=== PATIENT | female | born 1995 | race Caucasian/White ===

== ENCOUNTER 2017-03-09 08:50 | Outpatient (CLI) | payer OTHER | END 2017-03-09 08:51 | disposition EMS.NT | LOC: EMS 08:50 | PROVIDERS: ATTEND Surgery | DX: T63.441A Toxic effect of venom of bees, accidental (unintentional), initial encounter (principal) ==

== ENCOUNTER 2022-05-11 08:00 | Outpatient (CLI) | payer MEDICAID, OTHER ==
[2022-05-11 18:40] LABS: BASOPHILS % (AUTO) 0.7 %; EOSINOPHILS # (AUTO) 0.1 10^3/uL (0.0-0.7); EOSINOPHILS % (AUTO) 2.3 %; HCT - HEMATOCRIT 42.5 % (37.0-47.0); HGB - HEMOGLOBIN 14.9 g/dL (12.0-16.0); LYMPHOCYTES # (AUTO) 1.7 10^3/uL (1.5-3.5); LYMPHOCYTES % (AUTO) 31.2 %; MEAN CORPUSCULAR HGB CONC 35.1 g/dL (32.0-36.0); MEAN CORPUSCULAR VOLUME 94.2 fL (81.0-99.0); MEAN PLATELET VOLUME 9.7 fL (7.9-10.8); MONOCYTES # (AUTO) 0.6 10^3/uL (0.0-1.0); MONOCYTES % (AUTO) 10.8 %; NEUTROPHILS # (AUTO) 3.1 10^3/uL (1.5-6.6); NEUTROPHILS % (AUTO) 54.8 %; PLT - PLATELET COUNT 299 10^3/uL (130-450); RED BLOOD COUNT 4.51 10^6/uL (4.20-5.40); RED CELL DISTRIBUTION WIDTH 11.9 % (12.0-15.0); WHITE BLOOD COUNT 5.6 x10^3/uL (4.8-10.8)
[2022-05-11 19:04] LABS: ALBUMIN/GLOBULIN RATIO 1.6 (1.0-2.2); BILIRUBIN,TOTAL 1.6 mg/dL (0.2-1.0); CALCIUM 9.7 mg/dL (8.5-10.3); CREATININE 0.7 mg/dL (0.4-1.0); POTASSIUM 4.2 mmol/L (3.5-5.0); TOTAL PROTEIN 8.2 g/dL (6.7-8.2)
== END 2022-05-11 23:59 | disposition home or self-care (01) ==
LOC: LAB.N 08:00
PROVIDERS: ATTEND Nurse Practitioner
DX: R10.9 Unspecified abdominal pain (principal)
CPT/HCPCS: 36415; 80053; 82150; 83690; 85025

== ENCOUNTER 2022-05-17 10:10 | Outpatient (CLI) | payer MEDICAID ==
--- NOTE | 2022-05-17 10:50 | XRAY Report ---
PROCEDURE: Chest 2 View X-Ray INDICATIONS: UNSPECIFIED ABD PAIN TECHNIQUE: 2 view(s) of the chest. COMPARISON: None. FINDINGS: Surgical changes and devices: None. Lungs and pleura: No pleural effusions or pneumothorax. Lungs are clear. Mediastinum: Mediastinal contours are normal. Heart size is normal. Bones and chest wall: No suspicious bony abnormalities. Soft tissues appear unremarkable. IMPRESSION: No evidence for active disease in the chest. Reviewed by: Carlos Clark MD on 05/17/2022 10:48 AM PDT Approved by: Carlos Clark MD on 05/17/2022 10:48 AM PDT Station ID: [id number]
== END 2022-05-17 10:11 | disposition home or self-care (01) ==
LOC: DI.N 10:10
PROVIDERS: ATTEND Nurse Practitioner
DX: R10.9 Unspecified abdominal pain (principal)

== ENCOUNTER 2023-07-03 12:19 | Emergency (ER) | payer MEDICAID ==
[2023-07-03 12:50] LABS: BASOPHILS % (AUTO) 0.3 %; EOSINOPHILS # (AUTO) 0.2 10^3/uL (0.0-0.7); EOSINOPHILS % (AUTO) 1.9 %; HCT - HEMATOCRIT 43.7 % (37.0-47.0); HGB - HEMOGLOBIN 15.4 g/dL (12.0-16.0); LYMPHOCYTES # (AUTO) 1.5 10^3/uL (1.5-3.5); LYMPHOCYTES % (AUTO) 12.4 %; MEAN CORPUSCULAR HEMOGLOBIN 32.5 pg (27.0-31.0); MEAN CORPUSCULAR HGB CONC 35.2 g/dL (32.0-36.0); MEAN CORPUSCULAR VOLUME 92.2 fL (81.0-99.0); MEAN PLATELET VOLUME 9.2 fL (7.9-10.8); NEUTROPHILS # (AUTO) 9.6 10^3/uL (1.5-6.6); NEUTROPHILS % (AUTO) 77.1 %; PLT - PLATELET COUNT 324 10^3/uL (130-450); RED BLOOD COUNT 4.74 10^6/uL (4.20-5.40); RED CELL DISTRIBUTION WIDTH 11.2 % (12.0-15.0); WHITE BLOOD COUNT 12.4 x10^3/uL (4.8-10.8)
[2023-07-03 13:27] LABS: ALBUMIN/GLOBULIN RATIO 1.8 (1.0-2.2); BILIRUBIN,TOTAL 0.8 mg/dL (0.2-1.0); CALCIUM 9.5 mg/dL (8.5-10.3); CREATININE 0.6 mg/dL (0.6-1.3); TOTAL PROTEIN 7.8 g/dL (6.4-8.9)
[2023-07-03 13:54] LABS: HCG,QUALITATIVE BLOOD NEGATIVE
[2023-07-03] MEDS ORDERED: DROPERIDOL 5 MG/2 ML VIAL IVP STA (14:03)
[2023-07-03] MEDS ORDERED: HYDROmorphone 1 MG/ML CARPUJECT IVP STA (14:03)
[2023-07-03] MEDS ORDERED: SODIUM CHLORIDE 0.9% 1,000 ML IV STA (14:03)
--- NOTE | 2023-07-03 14:04 | ED Physician Documentation ---
PD HPI NVD - Stated complaint Stated Complaint: N/V - Chief complaint Chief Complaint: Abd Pain - History obtained from History obtained from: Patient - History of Present Illness Timing - onset: Enter time (0900), Today Timing - duration: Hours Timing - details: Abrupt onset Associated symptoms: Abdominal pain. No: Fever Contributing factors: Bad food (possible with potato "juice" on the outside of the package) Improved by: Vomiting Worsened by: Breathing, Position, Palpation Similar symptoms before: Has not had sx before Recently seen: Not recently seen - Additonal information Additional information: 27-year-old Namrata Angel reports that last night she was fixing up and some potatoes and on the outside of the package there was some potato juice from rotting of the potatoes and she opened the package with her mouth. Review of Systems Constitutional: denies: Fever Eyes: denies: Decreased vision Ears: denies: Loss of hearing Nose: denies: Congestion Throat: denies: Sore throat Cardiac: denies: Chest pain / pressure, Palpitations Respiratory: denies: Dyspnea, Cough GI: reports: Abdominal Pain, Nausea, Vomiting, Diarrhea : denies: Dysuria, Frequency PD PAST MEDICAL HISTORY - Past Medical History Cardiovascular: None Respiratory: None Endocrine/Autoimmune: None GI: None CENTER MANAGER: None : None HEENT: None Psych: None Musculoskeletal: None Derm: None - Past Surgical History Past Surgical History: No - Present Medications Home Medications: Ambulatory Orders Medication Instructions Recorded Confirmed Ondansetron Odt [Zofran] 4 mg TL Q6H PRN #10 tablet 07/03/23 - Allergies Allergies/Adverse Reactions: Allergies Allergy/AdvReac Type Severity Reaction Status Date / Time antibiotic unknown name Allergy Unknown Uncoded 07/03/23 12:28 - Social History Does the pt smoke?: No Smoking Status: Never smoker Does the pt drink ETOH?: No Does the pt have substance abuse?: No - Immunizations Immunizations are current?: Yes - POLST Patient has POLST: No PD ED PE NORMAL - Vitals Vital signs reviewed: Yes (Hypertensive mild) - General General: Alert and oriented X 3, Well developed/nourished, Other ( it may not be the patient is curled in the position and appears to be in pain) - HEENT HEENT: Atraumatic, PERRL, EOMI - Cardiac Cardiac: RRR, No murmur - Respiratory Respiratory: No respiratory distress, Clear bilaterally - Abdomen Abdomen: Normal bowel sounds, Soft, Non distended, No organomegaly, Other (Generalized tenderness without specific point tenderness no guarding or rebound) - Back Back: No CVA TTP, No spinal TTP - Derm Derm: Normal color, Warm and dry, No rash - Extremities Extremities: No deformity, No edema - Neuro Neuro: Alert and oriented X 3, safety leader 2-12 intact, No motor deficit, No sensory deficit, Normal speech Eye Opening: Spontaneous Motor: Obeys Commands Verbal: Oriented GCS Score: 15 - Psych Psych: Normal mood, Normal affect Results - Vitals Vitals: Vital Signs - 24 hr 07/03/23 07/03/23 07/03/23 12:23 14:59 15:40 Temperature 36.7 C 35.9 C L Heart Rate 94 90 Respiratory 22 16 Rate Blood Pressure 127/83 H 110/67 160/83 H O2 Saturation 97 98 Oxygen O2 Source Room air - Labs Labs: Laboratory Tests 07/03/23 07/03/23 07/03/23 12:46 12:46 12:46 WBC 12.4 H RBC 4.74 Hgb 15.4 Hct 43.7 MCV 92.2 MCH 32.5 H MCHC 35.2 RDW 11.2 L Plt Count 324 MPV 9.2 Neut # (Auto) 9.6 H Lymph # (Auto) 1.5 [place] # (Auto) 1.0 Eos # (Auto) 0.2 Baso # (Auto) 0.0 Absolute Nucleated RBC 0.00 Nucleated RBC % 0.0 Sodium 138 Potassium 4.0 Chloride 108 Carbon Dioxide 23 Anion Gap 7.0 BUN 12 Creatinine 0.6 Estimated GFR (MDRD) 121 Glucose 99 Calcium 9.5 Total Bilirubin 0.8 AST 14 ALT 14 Alkaline Phosphatase 62 Total Protein 7.8 Albumin 5.0 Globulin 2.8 Albumin/Globulin Ratio 1.8 Lipase 39 Serum HCG, Qual NEGATIVE Urine Color Urine Clarity Urine pH Ur Specific Grace Urine Protein Urine Glucose (UA) Urine Ketones Urine Occult Blood Urine Nitrite Urine Bilirubin Urine Urobilinogen Ur Leukocyte Esterase Ur Microscopic Review Urine Culture Comments Urine HCG, Qual 07/03/23 07/03/23 15:19 15:19 WBC RBC Hgb Hct MCV MCH MCHC RDW Plt Count MPV Neut # (Auto) Lymph # (Auto) [place] # (Auto) Eos # (Auto) Baso # (Auto) Absolute Nucleated RBC Nucleated RBC % Sodium Potassium Chloride Carbon Dioxide Anion Gap BUN Creatinine Estimated GFR (MDRD) Glucose Calcium Total Bilirubin AST ALT Alkaline Phosphatase Total Protein Albumin Globulin Albumin/Globulin Ratio Lipase Serum HCG, Qual Urine Color YELLOW Urine Clarity CLEAR Urine pH 5.5 Ur Specific Grace 1.025 Urine Protein NEGATIVE Urine Glucose (UA) NEGATIVE Urine Ketones NEGATIVE Urine Occult Blood NEGATIVE Urine Nitrite NEGATIVE Urine Bilirubin NEGATIVE Urine Urobilinogen 0.2 (NORMAL) Ur Leukocyte Esterase NEGATIVE Ur Microscopic Review NOT INDICATED Urine Culture Comments NOT INDICATED Urine HCG, Qual NEGATIVE - Rads (name of study) CT ab pel with Relevant Findings:: Prelim report reviewed (Impression: No findings to explain the patient's abdominal pain, nausea or vomiting. No obstructive process identified. Normal appendix. Left-sided corpus luteum.), EMP independent interpretation of test PD Medical Decision Making - ED course Complexity details: reviewed old records, reviewed results, re-evaluated patient, considered differential, d/w patient Reviewed Lab Results: We reviewed a complete blood cell count showing AN elevated white blood cell count of 12.4 normal hemoglobin hematocrit and platelets normal indices the chemistry showed normal electrolytes normal kidney and liver function normal glucose and a serum hCG was negative the urinalysis negative as well. These laboratory test did not contribute to a specific diagnosis. They did trigger CT scan of the abdomen and pelvis with abdominal pain and an elevated white blood cell count. This CT scan was able to rule out appendicitis or other processes contributing to the patient's symptoms. ED course: 27-year-old female with acute nausea vomiting and abdominal pain in the context of contaminating her mouth with portions of rotten potato is treated in the emergency department with Inapsine, Dilaudid and saline. I did question the patient about her use of cannabis which she uses extensively since she was 13 years old and she indicates that she has not had episodes similar to this previously and that she did get into a hot shower today before coming to the emergency department and did not get relief there. In fact she vomited more in the shower.I still suspect this may be cannabis hyperemesis but there are multiple portions of the history that indicate Departure - Departure Disposition: 01 Home, Self Care Clinical Impression: Vomiting Qualifiers: Vomiting type: unspecified Nausea presence: with nausea Qualified Code(s): R11.2 - Nausea with vomiting, unspecified Abdominal pain Qualifiers: Abdominal location: generalized Qualified Code(s): R10.84 - Generalized abdominal pain Condition: Stable Instructions: ED Diet Vomiting Diarrhea, ED Nausea Vomiting Follow-Up: [facility] [place] [Provider Group] Prescriptions: Ondansetron Odt [Zofran] 4 mg TL Q6H PRN #10 tablet PRN Reason: Nausea / Vomiting Comments: Namrata, today it looks like your abdominal pain nausea vomiting and diarrhea may have been related to some food poisoning. Usually with food poisoning once the episode is over it only takes a bit of time to recover from the effects of the dehydration. I have E scribed some Zofran for you to use if needed to the [facility] in [place]. Our expectations are no further pain and reduced nausea and diarrhea.
[2023-07-03 15:05] VITALS: O2SAT 98
[2023-07-03 15:28] LABS: BILIRUBIN,URINE NEGATIVE (NEGATIVE); GLUCOSE, URINE (UA) NEGATIVE (NEGATIVE); KETONES,URINE (UA) NEGATIVE (NEGATIVE); LEUKOCYTE ESTERASE, URINE NEGATIVE (NEGATIVE); NITRITE,URINE NEGATIVE (NEGATIVE); OCCULT BLOOD,URINE NEGATIVE (NEGATIVE); PH,URINE 5.5 PH (5.0-7.5); PROTEIN,URINE NEGATIVE (NEGATIVE); UROBILINOGEN,URINE 0.2 (NORMAL) E.U./dL (NORMAL)
[2023-07-03 15:31] LABS: CLARITY,URINE CLEAR (CLEAR); HCG UR QUAL NEGATIVE
[2023-07-03 15:42] VITALS: BP 160/83
--- NOTE | 2023-07-03 16:39 | CT Report ---
PROCEDURE: ABDOMEN/PELVIS W INDICATIONS: general pain severe CONTRAST: 100mL Omni 300 TECHNIQUE: After the administration of intravenous contrast, 5 mm thick sections acquired from the diaphragms to the symphysis. 5 mm thick coronal and sagittal reformats were acquired. For radiation dose reducti on, the following was used: automated exposure control, adjustment of mA and/or kV according to rohan ent size. COMPARISON: None FINDINGS: Image quality: Excellent. Lung bases and heart: Unremarkable. Liver: No solid mass. Gallbladder and biliary tree: Gallbladder sludge versus small stones. No wall thickening. No biliary dilation. Spleen: No splenomegaly. Pancreas: No pancreatic ductal dilation. Adrenals: No adrenal nodule. Kidneys and ureters: No hydronephrosis. No renal cystic lesion which requires follow up. No solid mas s. Bowel and peritoneum: No bowel distension. No pathologic free fluid. Normal appendix. Lymph nodes: No central or retroperitoneal adenopathy. Vessels: No infrarenal aortic aneurysm. PELVIS Reproductive organs: Left-sided corpus luteum. Bladder: No abnormal wall thickening, accounting for underdistension. Pelvic lymph nodes: No pelvic adenopathy by size criteria. Bones: No aggressive osseous abnormality. Other: No significant ventral or inguinal hernia. IMPRESSION: No findings to explain the patient's abdominal pain, nausea or vomiting. No obstructive process ident ified. Normal appendix. Left-sided corpus luteum. Reviewed by: Usman Romero on 07/03/2023 4:37 PM PDT Approved by: Usman Romero on 07/03/2023 4:37 PM PDT Station ID: [id number]
[2023-07-03] MEDS ORDERED: iohexoL-300 100 ML VIAL IVP ONE (17:15)
== END 2023-07-03 17:37 | disposition home or self-care (01) ==
LOC: ED 12:19
DX: R10.84 Generalized abdominal pain (principal); R11.2 Nausea with vomiting, unspecified; R19.7 Diarrhea, unspecified
CPT/HCPCS: 36415; 74177; 80053; 81003; 81025; 83690; 84703; 85025; 96374; 96375; 99283; 99284; J1170; Q9967; 81001; 87086

== ENCOUNTER 2024-02-01 08:00 | Outpatient (CLI) | payer BC ==
[2024-02-01 13:19] LABS: BASOPHILS % (AUTO) 0.3 %; EOSINOPHILS # (AUTO) 0.1 10^3/uL (0.0-0.7); EOSINOPHILS % (AUTO) 1.2 %; HCT - HEMATOCRIT 36.3 % (37.0-47.0); HGB - HEMOGLOBIN 12.2 g/dL (12.0-16.0); LYMPHOCYTES # (AUTO) 1.5 10^3/uL (1.5-3.5); LYMPHOCYTES % (AUTO) 22.2 %; MEAN CORPUSCULAR HEMOGLOBIN 32.1 pg (27.0-31.0); MEAN CORPUSCULAR HGB CONC 33.6 g/dL (32.0-36.0); MEAN CORPUSCULAR VOLUME 95.5 fL (81.0-99.0); MEAN PLATELET VOLUME 10.3 fL (7.9-10.8); MONOCYTES # (AUTO) 0.5 10^3/uL (0.0-1.0); MONOCYTES % (AUTO) 7.2 %; NEUTROPHILS # (AUTO) 4.5 10^3/uL (1.5-6.6); NEUTROPHILS % (AUTO) 68.8 %; PLT - PLATELET COUNT 237 10^3/uL (130-450); RED CELL DISTRIBUTION WIDTH 11.8 % (12.0-15.0); WHITE BLOOD COUNT 6.5 x10^3/uL (4.8-10.8)
[2024-02-01 13:43] LABS: ESTIMATED AVERAGE GLUCOSE 80 mg/dL (70-100); HEMOGLOBIN A1c% 4.4 % (4.27-6.07)
== END 2024-02-01 23:59 | disposition home or self-care (01) ==
LOC: LAB 08:00
PROVIDERS: ATTEND Nurse Practitioner Obstetrics & Gynecology
DX: Z34.03 Encounter for supervision of normal first pregnancy, third trimester (principal)
CPT/HCPCS: 36415; 82728; 83036; 85025; 86850

== ENCOUNTER 2024-05-06 02:06 | Inpatient (IN) | payer BC ==
[2024-05-06] MEDS ORDERED: miSOPROStoL 200 MCG TABLET PR PRN (02:13)
[2024-05-06] MEDS ORDERED: miSOPROStoL 200 MCG TABLET BC PRN (02:13)
[2024-05-06] MEDS ORDERED: METHYLERGONOVINE 0.2 MG/ML VIAL IM PRN (02:13)
[2024-05-06] MEDS ORDERED: hydrALAZINE INJ 20 MG/ML VIAL IVP PRN ×4 (02:13→04:34)
[2024-05-06] MEDS ORDERED: LABETALOL 20 MG/4 ML SYRINGE IVP PRN ×6 (02:13→04:34)
[2024-05-06] MEDS ORDERED: OXYTOCIN/SODIUM CHLORIDE 500 ML IV PRN ×2 (02:13→04:34)
[2024-05-06] MEDS ORDERED: lidocaine 1% 20 ML MDV ID PRN (02:13)
[2024-05-06] MEDS ORDERED: TRANEXAMIC ACID IN NACL 1,000 MG/100 ML BAG IV PRN (02:13)
[2024-05-06] MEDS ORDERED: NIFEdipine 10 MG CAPSULE PO PRN ×2 (02:13→04:34)
[2024-05-06] MEDS ORDERED: fentaNYL 100 MCG/2 ML VIAL IVP PRN (02:13)
[2024-05-06] MEDS ORDERED: SODIUM CHLORIDE FLUSH 0.9% 10 ML SYRINGE IVP PRN (02:13)
[2024-05-06] MEDS ORDERED: OXYTOCIN 10 UNIT/ML VIAL IM PRN (02:13)
[2024-05-06] MEDS ORDERED: CARBOPROST TROMETHAMINE 250 MCG/ML VIAL IM PRN (02:13)
[2024-05-06] MEDS ORDERED: TERBUTALINE 1 MG/ML VIAL SUBQ ONE (02:21)
[2024-05-06] MEDS: TERBUTALINE 1 MG/ML VIAL SUBQ PRN (02:23)
[2024-05-06] MEDS ORDERED: MORPHINE PF 5 MG/10 ML VIAL ONE (02:24)
[2024-05-06] MEDS ORDERED: ceFAZolin (2G) 2 GM in SODIUM CHLORIDE 0.9% MINIBAG 100 ML IV ONE (02:26)
[2024-05-06] MEDS ORDERED: CARBOPROST TROMETHAMINE 250 MCG/ML VIAL IM ONE (02:46)
[2024-05-06] MEDS ORDERED: miSOPROStoL 200 MCG TABLET ONE (02:46)
[2024-05-06] MEDS ORDERED: METHYLERGONOVINE 0.2 MG/ML VIAL ONE (02:46)
[2024-05-06] MEDS ORDERED: OXYTOCIN 10 UNIT/ML VIAL ONE (02:47)
[2024-05-06 02:50] LABS: BASOPHILS % (AUTO) 0.2 %; EOSINOPHILS # (AUTO) 0.1 10^3/uL (0.0-0.7); EOSINOPHILS % (AUTO) 0.7 %; HCT - HEMATOCRIT 37.2 % (37.0-47.0); LYMPHOCYTES # (AUTO) 2.7 10^3/uL (1.5-3.5); LYMPHOCYTES % (AUTO) 17.8 %; MEAN CORPUSCULAR HEMOGLOBIN 33.2 pg (27.0-31.0); MEAN CORPUSCULAR HGB CONC 34.9 g/dL (32.0-36.0); MEAN CORPUSCULAR VOLUME 95.1 fL (81.0-99.0); MEAN PLATELET VOLUME 11.1 fL (7.9-10.8); MONOCYTES # (AUTO) 1.1 10^3/uL (0.0-1.0); MONOCYTES % (AUTO) 6.9 %; NEUTROPHILS # (AUTO) 11.3 10^3/uL (1.5-6.6); NEUTROPHILS % (AUTO) 74.1 %; PLT - PLATELET COUNT 225 10^3/uL (130-450); RED BLOOD COUNT 3.91 10^6/uL (4.20-5.40); RED CELL DISTRIBUTION WIDTH 12.9 % (12.0-15.0); WHITE BLOOD COUNT 15.3 x10^3/uL (4.8-10.8)
[2024-05-06] MEDS ORDERED: HYDROmorphone 1 MG/ML CARPUJECT ONE (02:52)
[2024-05-06] MEDS ORDERED: PROPOFOL 200 MG/20 ML VIAL IVP ONE (02:52)
[2024-05-06] MEDS ORDERED: SUCCINYLCHOLINE 200 MG/10 ML VIAL ONE (02:52)
[2024-05-06] MEDS ORDERED: ONDANSETRON 4 MG/2 ML VIAL ONE (02:54)
[2024-05-06] MEDS ORDERED: DEXAMETHASONE 4 MG/ML VIAL ONE (02:54)
[2024-05-06] MEDS ORDERED: ACETAMINOPHEN 1,000 MG/100 ML 1,000 MG/100 ML BAG IV ONE (03:00)
[2024-05-06] MEDS ORDERED: SODIUM CHLORIDE FLUSH 0.9% 10 ML SYRINGE IVP SCH (03:00)
[2024-05-06] MEDS ORDERED: OXYTOCIN/SODIUM CHLORIDE 500 ML IV ONE (03:00)
[2024-05-06] MEDS ORDERED: fentaNYL 100 MCG/2 ML VIAL ONE (03:02)
[2024-05-06 03:06] LABS: ALBUMIN 3.8 g/dL (3.2-5.5); ALBUMIN/GLOBULIN RATIO 1.2 (1.0-2.2); CALCIUM 9.4 mg/dL (8.5-10.3); CREATININE 0.6 mg/dL (0.6-1.3); POTASSIUM 3.2 mmol/L (3.5-4.5); TOTAL PROTEIN 6.9 g/dL (6.4-8.9)
[2024-05-06] MEDS ORDERED: KETOROLAC 30 MG/ML VIAL ONE (03:11)
[2024-05-06] MEDS ORDERED: ROPIVACAINE 0.5% PF 20 ML VIAL ONE (03:12)
[2024-05-06 03:16] LABS: THYROID STIMULATING HORMONE 6.65 uIU/mL (0.34-5.60)
[2024-05-06] MEDS: LACTATED RINGERS 1,000 ML IV ONE ×5 (04:05→08:13)
[2024-05-06] MEDS ORDERED: ATROPINE ABBOJECT 1 MG/10 ML SYRINGE IVP PRN (04:14)
[2024-05-06] MEDS ORDERED: MORPHINE 2 MG/ML CARPUJECT IVP PRN (04:14)
[2024-05-06] MEDS ORDERED: ONDANSETRON 4 MG/2 ML VIAL IVP PRN ×2 (04:14→04:34)
[2024-05-06] MEDS ORDERED: NALOXONE 0.4 MG/ML VIAL IVP PRN ×2 (04:14→04:34)
[2024-05-06] MEDS ORDERED: HYDROmorphone 0.5 MG/0.5 ML SYRINGE IVP PRN (04:14)
[2024-05-06] MEDS: fentaNYL 100 MCG/2 ML VIAL IVP PRN (04:17)
--- NOTE | 2024-05-06 04:17 | ANESTHESIA ---
Pre-Anesthesia VS, & Labs - Diagnosis bradycardia - Procedure primary c/s Height: 5 ft - NPO Last Food Intake: 0 - Is Patient ?: Yes - Lab Results Current Lab Results: Laboratory Tests 05/06/24 02:20: Blood Type A NEGATIVE, Antibody Screen NEGATIVE 05/06/24 02:20: WBC 15.3 H, RBC 3.91 L, Hgb 13.0, Hct 37.2, MCV 95.1, MCH 33.2 H , MCHC 34.9, RDW 12.9, Plt Count 225, MPV 11.1 H, Neut # (Auto) 11.3 H, Lymph # (Auto) 2.7, [place] # (Auto) 1.1 H, Eos # (Auto) 0.1, Baso # (Auto) 0.0, Absolute Nucleated RBC 0.00, Nucleated RBC % 0.0 05/06/24 02:20: Sodium 136, Potassium 3.2 L, Chloride 104, Carbon Dioxide 18 L, Anion Gap 14.0 H, BUN 9, Creatinine 0.6, Estimated GFR (MDRD) 120, Glucose 124 H , Calcium 9.4, Total Bilirubin 1.0, AST 17, ALT 8 L, Alkaline Phosphatase 204 H, Total Protein 6.9, Albumin 3.8, Globulin 3.1, Albumin/Globulin Ratio 1.2, TSH 6.65 H Lab results reviewed: Yes Fish Bones: 05/06/24 02:20 05/06/24 02:20 Home Medications and Allergies Active Medications Carboprost Tromethamine (Carboprost Tromethamine 250 Mcg/Ml Vial) 250 mcg IM .ONCE PRN PRN Reason: Hemorrhage Fentanyl (Fentanyl 100 Mcg/2 Ml Vial) 50 mcg IVP Q1H PRN PRN Reason: Severe Pain (score 7-10) Hydralazine HCl (Hydralazine Inj 20 Mg/Ml Vial) 5 - 10 mg IVP Q20M PRN; Protocol PRN Reason: SBP> or= 160 OR DBP> or= 110 Hydralazine HCl (Hydralazine Inj 20 Mg/Ml Vial) 10 mg IVP .ONCE PRN; Protocol PRN Reason: SBP> or= 160 OR DBP> or= 110 Lactated Ringer's (Lr) 500 mls @ 999 mls/hr IV PRN PRN PRN Reason: PER PHYSICIAN ORDER Oxytocin/Sodium Chloride (Pitocin/Sodium Chloride) 500 mls @ 999 mls/hr IV PRN PRN; Protocol PRN Reason: POST- HEMORR PREVENTION Tranexamic Acid (Tranexamic 1,000 Mg/100ml-Nacl) 1,000 mg in 100 mls @ 600 mls/hr IV Q30M PRN PRN Reason: EBL >1200mL and within 3hr Labetalol HCl (Labetalol 20 Mg/4 Ml Syringe) 20 - 80 mg IVP Q10M PRN; Protocol PRN Reason: SBP> or= 160 OR DBP> or= 110 Labetalol HCl (Labetalol 20 Mg/4 Ml Syringe) 20 mg IVP .ONCE PRN; Protocol PRN Reason: SBP> or= 160 OR DBP> or= 110 Labetalol HCl (Labetalol 20 Mg/4 Ml Syringe) 20 - 40 mg IVP Q10M PRN; Protocol PRN Reason: SBP> or= 160 OR DBP> or= 110 Lidocaine HCl (Lidocaine 1% 20 Ml Mdv) 20 ml ID .ONCE PRN PRN Reason: PERINEAL REPAIR Stop: 05/09/24 02:13 Methylergonovine Maleate (Methylergonovine 0.2 Mg/Ml Vial) 0.2 mg IM .ONCE PRN PRN Reason: Hemorrhage Misoprostol (Misoprostol 200 Mcg Tablet) 600 mcg BC .ONCE PRN PRN Reason: Hemorrhage Misoprostol (Misoprostol 200 Mcg Tablet) 800 mcg AL .ONCE PRN PRN Reason: Hemorrhage Nifedipine (Nifedipine 10 Mg Capsule) 10 - 20 mg PO Q20M PRN; Protocol PRN Reason: SBP> or= 160 OR DBP> or= 110 Oxytocin (Oxytocin 10 Unit/Ml Vial) 10 unit IM .ONCE PRN PRN Reason: Step One if no IV access. Sodium Chloride (Sodium Chloride Flush 0.9% 10 Ml Syringe) 10 ml IVP PRN PRN PRN Reason: NEEDED PER PROVIDER ORDERS Sodium Chloride (Sodium Chloride Flush 0.9% 10 Ml Syringe) 10 ml IVP Q8H THOMAS Terbutaline Sulfate (Terbutaline 1 Mg/Ml Vial) 0.25 mg SUBQ .ONCE PRN PRN Reason: Tachystole Last Admin: 05/06/24 02:23 Dose: 0.25 mg Allergies/Adverse Reactions: Allergies Allergy/AdvReac Type Severity Reaction Status Date / Time antibiotic unknown name Allergy Unknown Uncoded 07/03/23 12:28 Anes History & Medical History - Anesthetic History Anesthesia Complications: reports: No previous complications - Medical History Cardiovascular: reports: None Pulmonary: reports: None Gastrointestinal: reports: None Urinary: reports: None Musculoskeletal: reports: None Endocrine/Autoimmune: reports: None Blood Disorders: reports: None Skin: reports: None Smoking Status: Never smoker Exam General: Alert, Oriented x3, Moderate distress Mental/Cognitive Status: Alert/Oriented X3 Plan Anesthesia Type: General (Verbal consent obtained. GETA with RSI), Transverse Abdominis Plane (TAP) Block (Bin.) Regional Block: Per Surgeon's request for Post Op pain control Consent for Procedure(s) Verified and Reviewed: Yes Code Status: Attempt Resuscitation ASA classification: 1-Healthy patient Is this case an emergency?: Yes
--- NOTE | 2024-05-06 04:32 | ANESTHESIA POST OP EVALUATION ---
Anesthesia Post Eval - Post Anesthesia Eval Vitals: Last Vital Signs Temp 36.2 C L 05/06/24 04:15 Pulse 94 05/06/24 04:15 Resp 21 05/06/24 04:15 BP 108/66 05/06/24 04:15 Pulse Ox 100 05/06/24 04:15 O2 Flow Rate CV Function Including HR & BP: Stable Pain Control: Satisfactory Nausea & Vomiting: Negative Mental Status: Baseline Respiratory Status: Airway Patent Hydration Status: Satisfactory Anesthesia Complications: None
[2024-05-06] MEDS ORDERED: CALCIUM CARBONATE CHEW 500 MG TABLET PO PRN (04:34)
[2024-05-06] MEDS ORDERED: HYDROCORTISONE 1% CREAM 28 GM TUBE TOP PRN (04:34)
[2024-05-06] MEDS ORDERED: WITCH HAZEL/GLYCERIN 1 PAD TOP PRN (04:34)
[2024-05-06] MEDS ORDERED: METOCLOPRAMIDE 10 MG TABLET PO PRN (04:34)
--- NOTE | 2024-05-06 04:54 | HISTORY & PHYSICAL EXAMINATION ---
Admit History - Smoking Status: Never smoker - Other Maternal History Other Maternal History: HPI: Namrata is a 28 yo who presented at 41w4d, brought to the hospital by her oven stripper with concern for decelerations. Building Services Engineer was called to patients home for labor, and per her report, on arrival, patient was laboring in the bathtub, FHTs were intermittently in the 80s. She notified L&D and brought patient to hospital. Limited history obtained given emergent nature of case. records not available for review. uncomplicated per patient and oven stripper. GBS neg and membranes intact per report. Medical Hx: denies Surgical Hx: denies CRM SOLUTION ARCHITECT Hx: Social Hx: not obtained Family Hx: not obtained Allergies: denies Meds: denies PE: VS reviewed Patient with painful contractions. SVE on presentation, /-2. No membranes palpable, + meconium. monitoring: FHTs: 120s on initial presentation 3 min followed by decelerations to 80's with brief intermittent recoveries to 120s. Mod variability. [place]: approximately q 2 min Labs: reviewed A/P: 28 yo at 41w4d who presented in early labor, suspect prior SROM with decelerations/intolerance of labor: - I recommended to Namrata and family that we proceed with primary delivery. Risks were reviewed with her including pain, bleeding, infection, damage to nearby structures including bowel/bladder, hemorrhage requiring blood transfusion, . Risks of not proceeding with delivery including brain injury/ were also discussed. She did verbally consent to proceeding with delivery. After administration of terbutaline, she was taken emergently to the OR. Tyron Turner MD - HPI Vital Signs Temperature 96.8 F L 05/06/24 04:05 Heart Rate 131 H 05/06/24 04:05 Respiratory Rate 21 05/06/24 04:05 Blood Pressure 119/95 H 05/06/24 04:05 O2 Saturation 100 05/06/24 04:05 Temperature 97.2 F L 05/06/24 04:15 Heart Rate 94 05/06/24 04:15 Respiratory Rate 21 05/06/24 04:15 Blood Pressure 108/66 05/06/24 04:15 O2 Saturation 100 05/06/24 04:15 If not protocol: Oxygen Flow, liters/minute Meds/Allgy - Home Medications Home Medications: Ambulatory Orders Medication Instructions Recorded Confirmed Ondansetron Odt [Zofran] 4 mg TL Q6H PRN #10 tablet 07/03/23 Famotidine [Pepcid] 20 mg PO DAILY #20 tablet 11/04/23 Folic Acid 1 mg PO DAILY #15 tablet 11/04/23 Naproxen 500 mg PO BID #15 tab 11/04/23 Ondansetron Odt [Zofran] 4 mg TL Q6H PRN #20 tablet 11/04/23 Pyridoxine HCl (Vitamin B6) 25 mg PO BID #30 tablet 11/04/23 [Vitamin B-6] - Allergies Allergies/Adverse Reactions: Allergies Allergy/AdvReac Type Severity Reaction Status Date / Time antibiotic unknown name Allergy Unknown Uncoded 07/03/23 12:28 Physical - Abdominal Exam Vital Signs: Temp Pulse Resp BP Pulse Ox O2 Flow Rate 97.2 F L 94 21 108/66 100 05/06/24 04:15 05/06/24 04:15 05/06/24 04:15 05/06/24 04:15 05/06/24 04:15 Plan for Labor - Plan For Labor I expect patient to be DC'd or transferred within 96 hours.: Yes
[2024-05-06] MEDS ORDERED: LACTATED RINGERS 1,000 ML IV SCH (05:00)
--- NOTE | 2024-05-06 05:09 | OPERATIVE REPORT ---
Operative Report - General Admit Date: 05/06/24 Procedure Date: 05/06/24 - Other Other Information/Narrative: DATE OF PROCEDURE: 05/06/2024 Surgeon: Tyron Turner MD Lockstitch Machine Operator: YANCY Bolivar Pre-Op Diagnosis: intolerance of labor Post-Op Diagnosis: Same Procedures: primary LTCS Findings: Normal appearing uterus, tubes, ovaries. Infant in vertex position with nuchal cord. Minimal amniotic fluid with + meconium. Specimens: placenta sent to pathology Anesthesia Technique: general Estimated Blood Loss (mls): 800cc Blood Replacement (mls): none Fluid Replacement (mls): see anesthesia record Drains: marrufo draining clear yellow urine, approximately 175cc at completion of case Complications: none Condition: stable Procedure in Detail: The patient was taken to the operating room. On arrival to the OR, recurrent de celerations to the 70s were noted with brief recoveries to the 120s. Namrata again verbally consented to proceeding with delivery under general anesthesia. Marrufo catheter was placed. Her abdomen was prepped and draped. 2g Ancef and 500mg azithromycin were given for antiobiotic prophylaxis during the case. Full count not performed due to emergent nature. A very brief surgical timeout was performed. A pfannenstiel skin incision was made with the scalpel and carried down through the subcutaneous tissue in the midline. The remainder of the subcutaneous tissue was then bluntly. The fascia was incised in the midline and the incision was extended bluntly. Finger dissection was used to separate the rectus muscles in the midline and the peritoneum was entered and the layers extended bluntly. The bladder blade was then inserted. The lower uterine segment was incised in a transverse fashion with the scalpel. The uterine incision was extended bluntly. The bladder blade was removed and the infants head was brought to the hysterotomy. Fundal pressure applied and the delivered atraumatically. The cord was clamped and cut immediately and the infant was handed off to the waiting provider. Cord blood was obtained as well as a segment for cord gases. The placenta was removed with gentle uterine massage and cord traction. The uterus was exteriorized and cleared of all clots and debris with moist laparotomy sponges. The uterine incision was repaired with 0 Vicryl in a running fashion. A second layer of 0 monocryl was used in an imbricating fashion. Atony initially noted and additional pitocin, followed by IM methergine was administered by anesthesia with improvement in tone. The posterior cul-de-sac was cleared of all clots and debris with laparotomy sponges, and the uterus was returned to the abdomen. The gutters were cleared of all clots. Excellent hemostasis of the hystertomy was again noted. The rectus muscles were carefully examined and electrocautery was used to achieve hemostasis. The fascia was reapproximated with 0 Vicryl in a running fashion. The subcutaneous tissues was irrigated. The subcutaneous tissue was reapproximated with 2-0 Vicryl in two layers and the skin was closed with 3-0 monocryl. Steristrips followed by sterile bandage were placed. Abdominal xray was performed and no sponges or instruments were visible. The patient was extubated and taken to the recovery room in stable condition. Tyron Turner MD
[2024-05-06] MEDS: LACTATED RINGERS 1,000 ML IV PRN (07:58)
--- NOTE | 2024-05-06 08:09 | XRAY Report ---
PROCEDURE: Abdomen 1 V INDICATIONS: post stat csection, unable to count TECHNIQUE: One view of the abdomen acquired. COMPARISON: 07/03/2023 FINDINGS: Moderate fecal loading. No unanticipated radiopaque foreign bodies identified. No suspicious calcifications. IMPRESSION: No unexpected radiopaque foreign bodies. Agree with preliminary report. Reviewed by: Gasper Ruelas MD on 05/06/2024 8:08 AM PDT Approved by: Gasper Ruelas MD on 05/06/2024 8:08 AM PDT Station ID: [id number]
[2024-05-06] MEDS: oxyCODONE 5 MG TABLET PO PRN (08:18)
[2024-05-06] MEDS: DOCUSATE SODIUM 100 MG CAPSULE PO SCH (08:19)
[2024-05-06] MEDS: KETOROLAC 30 MG/ML VIAL IVP SCH (09:30)
[2024-05-06] MEDS: ceFAZolin (2G) 2 GM in SODIUM CHLORIDE 0.9% MINIBAG 100 ML IV SCH (09:30)
--- NOTE | 2024-05-06 10:17 | PHARMACY PROGRESS NOTE ---
- Best Possible Medication History Admit Date and Time: 05/06/24 0213 Processed by: Pharmacy Medications reviewed in ED?: No Medication History completed: Yes Patient Interview: Pt unable to participate Secondary Source(s): Physician records, Insurance records As the person ultimately responsible for medication therapy, providers are able to order a medication from an existing home medication list in [facility] via the "Reconcile Routine" prior to Confirmation of that medication by production support consultant. Such practice is discouraged except when the physician, in their clinical judgment, deems that a medical need exists for a medication without regard to previous use.
[2024-05-06] MEDS: ACETAMINOPHEN 500 MG TABLET PO SCH (11:34)
--- NOTE | 2024-05-06 13:05 | Labor Flowsheet ---
Labor Flowsheet Datetime Report Generated by CPN: 05/06/2024 13:05 Datetime: 05/06/2024 05:32 VAGINAL EXAM Membranes Ruptured Date/Time: 05/06/2024 02:44 Membranes Rupture Method: Artificial Amniotic Fluid Color: Heavy Meconium Amniotic Fluid Amount: Moderate Amniotic Fluid Odor: Normal Datetime: 05/06/2024 02:26 ASSESSMENT A Monitor Mode: External US FHR Baseline Rate : 135 Variability: Moderate 6-25 bpm Accelerations: None Decelerations: Prolonged Category: Category III Datetime: 05/06/2024 02:23 MEDICATIONS Tocolytics: Terbutaline 0.25mg Subcutaneous Datetime: 05/06/2024 02:20 PROCEDURE TIME OUT Procedure Verify: Correct Patient Identity; Agreement on Procedure to be Done COMMUNICATION Communication: Provider at Bedside Communication Comments: Discussion in regards to . Consent given, Provider discussed ris ks and allowed time for questions, pt verbalized consent, SO at bedside no questions at this time. Datetime: 05/06/2024 02:18 Provider Notified (Name): KChip Sharma Datetime: 05/06/2024 02:17 PATIENT CARE Patient Position/Activity: Right Extreme Datetime: 05/06/2024 02:13 VITAL SIGNS NBP Sys/Stephanie/Mean (mmHg): 113 : 48 : 64 Pulse: 80 Datetime: 05/06/2024 02:11 Patient Care Comments: in bed
[2024-05-06 15:27] LABS: BASOPHILS % (AUTO) 0.2 %; EOSINOPHILS % (AUTO) 0.1 %; HCT - HEMATOCRIT 26.6 % (37.0-47.0); HGB - HEMOGLOBIN 9.2 g/dL (12.0-16.0); LYMPHOCYTES # (AUTO) 1.8 10^3/uL (1.5-3.5); LYMPHOCYTES % (AUTO) 12.8 %; MEAN CORPUSCULAR HEMOGLOBIN 33.9 pg (27.0-31.0); MEAN CORPUSCULAR HGB CONC 34.6 g/dL (32.0-36.0); MEAN CORPUSCULAR VOLUME 98.2 fL (81.0-99.0); MEAN PLATELET VOLUME 11.1 fL (7.9-10.8); MONOCYTES # (AUTO) 0.9 10^3/uL (0.0-1.0); MONOCYTES % (AUTO) 6.2 %; NEUTROPHILS # (AUTO) 11.3 10^3/uL (1.5-6.6); NEUTROPHILS % (AUTO) 80.4 %; PLT - PLATELET COUNT 164 10^3/uL (130-450); RED BLOOD COUNT 2.71 10^6/uL (4.20-5.40); RED CELL DISTRIBUTION WIDTH 12.8 % (12.0-15.0); WHITE BLOOD COUNT 14.1 x10^3/uL (4.8-10.8)
[2024-05-07] MEDS: IBUPROFEN 600 MG TABLET PO SCH (03:38)
[2024-05-07] MEDS: RHO(D) IMMUNE GLOBULIN 300 MCG SYRINGE IVP ONE (10:09)
[2024-05-07] MEDS: SIMETHICONE CHEW 80 MG TABLET PO PRN (10:09)
--- NOTE | 2024-05-07 14:05 | PROVIDER PROGRESS NOTE ---
Subjective - Subjective Subjective: Subjective Patient reports she is doing well. Lochia appropriate. Denies heavy bleeding. Ambulating. Pelvic and abdominal pain well-controlled. Tolerating oral intake. Diet: Regular. Voiding without difficulty. Passing flatus. Denies BM. Patient is bonding with baby in room Breast feeding going well. Denies feeling lightheaded, dizzy or excessively fatigued. Objective General: Alert, oriented, no apparent distress. Cardiovascular: Regular rate. Regular rhythm. Lungs: No increased work of breathing. Abdomen: Uterus firm. Below umbilicus. No guarding or rebound. Extremities: No pain on palpation. No cords palpated. Distal pulses intact. Incision: Bandage in place. Assessment and Plan day 1. -Routine care -Anticipate discharge tomorrow Status post primary low transverse section -Routine postop care Objective - Vital Signs/Intake & Output Vital Signs: Vital Signs x48h Temp Pulse Resp BP Pulse Ox 05/07/24 12:35 98.6 F 82 18 133/88 H 99 05/07/24 09:05 98.6 F 88 14 98/66 97 Intake & Output: Intake & Output 05/04/24 05/05/24 05/06/24 05/07/24 23:59 23:59 23:59 23:59 Intake Total 1100 2100 Output Total 2250 2000 Balance -1150 100 - Lab Results Fish Bones: 05/06/24 13:50 05/06/24 02:20 Other Labs: Lab Results x24hrs 05/06/24 05/06/24 05/06/24 Range/Units 13:50 13:50 13:50 WBC 14.1 H (4.8-10.8) x10^3/uL RBC 2.71 L (4.20-5.40) 10^6/uL Hgb 9.2 L (12.0-16.0) g/dL Hct 26.6 L (37.0-47.0) % MCV 98.2 (81.0-99.0) fL MCH 33.9 H (27.0-31.0) pg MCHC 34.6 (32.0-36.0) g/dL RDW 12.8 (12.0-15.0) % Plt Count 164 (130-450) 10^3/uL MPV 11.1 H (7.9-10.8) fL Neut # (Auto) 11.3 H (1.5-6.6) 10^3/uL Lymph # (Auto) 1.8 (1.5-3.5) 10^3/uL [place] # (Auto) 0.9 (0.0-1.0) 10^3/uL Eos # (Auto) 0.0 (0.0-0.7) 10^3/uL Baso # (Auto) 0.0 (0.0-0.1) 10^3/uL Absolute Nucleated RBC 0.00 x10^3/uL Nucleated RBC % 0.0 /100WBC TSH 1.68 (0.34-5.60) uIU/mL Blood Type A NEGATIVE Weak D (Du) WEAK-D NEGATIVE Maternal Bleed NEGATIVE (NEGATIVE)
--- NOTE | 2024-05-08 08:28 | Discharge Plan ---
Discharge Plan Problem Reviewed?: Yes Disposition: Home, Self Care Condition: Good Diet: Regular Activity Restrictions: Additional Comments Instruction Topics: Depression , C Section Dc No Smoking: If you smoke, Please STOP! Call for help. Follow-up with: Tyron Turner MD [Provider Admit Priv/Credential] -
--- NOTE | 2024-05-08 08:31 | DISCHARGE SUMMARY ---
Discharge Summary Admit Date: 05/06/24 Discharge Date: 05/08/24 Discharging Provider: Rafat Farah MD Condition at Discharge: Good Discharge Disposition: 01 Home, Self Care - DIAGNOSES Admission Diagnoses: Nonreassuring heart rate 41 weeks gestation Discharge Diagnoses with Status of Each Condition: Status post primary low-transverse section Delivery of live berman - HPI History of Present Illness: Subjective Patient reports she is doing well. Lochia appropriate. Denies heavy bleeding. Ambulating. Pelvic and abdominal pain well-controlled. Tolerating oral intake. Diet: Regular. Voiding without difficulty. Passing flatus. Denies BM. Patient is bonding with baby in room Breast feeding going well. Denies feeling lightheaded, dizzy or excessively fatigued. Objective General: Alert, oriented, no apparent distress. Cardiovascular: Regular rate. Regular rhythm. Lungs: No increased work of breathing. Abdomen: Uterus firm. Below umbilicus. No guarding or rebound. Extremities: No pain on palpation. No cords palpated. Distal pulses intact. Incision: Bandage removed today. Clean, dry, and intact. Steristrips in place - HOSPITAL COURSE Hospital Course: Patient presented with abnormal heart tracings after being evaluated by her home public space attendant. On presentation, she had significant decelerations and abnormal heart tracings. She was consented and proceeded with primary low-transverse section. was uncomplicated. She did have an uncomplicated course and was discharged on day 3. - ALLERGIES Allergies/Adverse Reactions: Allergies Allergy/AdvReac Type Severity Reaction Status Date / Time antibiotic unknown name Allergy Unknown Unknown Uncoded 05/06/24 07:21 - MEDICATIONS Home Medications: Ambulatory Orders Medication Instructions Recorded Confirmed Ferrous Sulfate 325 mg PO BID #60 tab 05/08/24 Ibuprofen [Motrin] 600 mg PO Q6H PRN #30 tab 05/08/24 oxyCODONE [Roxicodone] 5 mg PO Q4H PRN #20 tablet 05/08/24 - LABS Result Diagrams: 05/06/24 13:50 05/06/24 02:20 - FOLLOW UP [facility] - TIME SPENT Time Spent in Discharge (Minutes): 30
--- NOTE | 2024-05-08 08:38 | PROVIDER PROGRESS NOTE ---
Subjective - Subjective Subjective: Subjective Patient reports she is doing well. Lochia appropriate. Denies heavy bleeding. Ambulating. Pelvic and abdominal pain well-controlled. Tolerating oral intake. Diet: Regular. Voiding without difficulty. Passing flatus. Denies BM. Patient is bonding with baby in room Breast feeding going well. Baby losing some weight, but pumping and getting lots of milk Denies feeling lightheaded, dizzy or excessively fatigued. Objective General: Alert, oriented, no apparent distress. Cardiovascular: Regular rate. Regular rhythm. Lungs: No increased work of breathing. Abdomen: Uterus firm. Below umbilicus. No guarding or rebound. Extremities: No pain on palpation. No cords palpated. Distal pulses intact. Incision: Bandage in place. Assessment and Plan day 2. -Routine care -Working on feeding and maintaining baby's weight. Feels like she needs extra support before going home. -Anticipate discharge tomorrow Status post primary low-transverse section -Routine postop care Objective - Vital Signs/Intake & Output Vital Signs: Vital Signs x48h Temp Pulse Resp BP Pulse Ox 05/08/24 08:15 98.8 F 83 12 116/72 100 05/08/24 04:59 98.1 F 88 17 119/72 100 05/08/24 02:00 98.6 F 85 16 107/60 97 Intake & Output: Intake & Output 05/05/24 05/06/24 05/07/24 05/08/24 23:59 23:59 23:59 23:59 Intake Total 1100 2100 Output Total 2250 2000 Balance -1150 100 - Lab Results Fish Bones: 05/06/24 13:50 05/06/24 02:20
[2024-05-09 07:59] VITALS: BP 136/94; O2SAT 100
--- NOTE | 2024-05-09 12:01 | Labor Flowsheet ---
Labor Flowsheet Datetime Report Generated by CPN: 05/09/2024 12:01 Datetime: 05/06/2024 05:32 VAGINAL EXAM Membranes Ruptured Date/Time: 05/06/2024 02:44 Membranes Rupture Method: Artificial Amniotic Fluid Color: Heavy Meconium Amniotic Fluid Amount: Moderate Amniotic Fluid Odor: Normal Datetime: 05/06/2024 02:26 ASSESSMENT A Monitor Mode: External US FHR Baseline Rate : 135 Variability: Moderate 6-25 bpm Accelerations: None Decelerations: Prolonged Category: Category III Datetime: 05/06/2024 02:23 MEDICATIONS Tocolytics: Terbutaline 0.25mg Subcutaneous Datetime: 05/06/2024 02:20 PROCEDURE TIME OUT Procedure Verify: Correct Patient Identity; Agreement on Procedure to be Done COMMUNICATION Communication: Provider at Bedside Communication Comments: Discussion in regards to . Consent given, Provider discussed ris ks and allowed time for questions, pt verbalized consent, SO at bedside no questions at this time. Datetime: 05/06/2024 02:18 Provider Notified (Name): KChip Sharma Datetime: 05/06/2024 02:17 PATIENT CARE Patient Position/Activity: Right Extreme Datetime: 05/06/2024 02:13 VITAL SIGNS NBP Sys/Stephanie/Mean (mmHg): 113 : 48 : 64 Pulse: 80 Datetime: 05/06/2024 02:11 Patient Care Comments: in bed
== END 2024-05-09 11:00 | disposition home or self-care (01) | DRG 787 ==
LOC: WFO 02:06 → FBP 02:08 → WFO 02:12 → FBP 02:13 → UNDODISIN 12:15
PROVIDERS: ADMIT Obstetrics & Gynecology; ATTEND Obstetrics & Gynecology
PROC: 10D00Z1 Extraction of Products of Conception, Low, Open Approach (ICD-10-PCS; principal; 2024-05-06 02:30)
DX: O76 Abnormality in fetal heart rate and rhythm complicating labor and delivery (principal); O99.321 Drug use complicating pregnancy, first trimester; Z3A.41 41 weeks gestation of pregnancy; Z37.0 Single live birth; O77.0 Labor and delivery complicated by meconium in amniotic fluid; O99.311 Alcohol use complicating pregnancy, first trimester; F14.90 Cocaine use, unspecified, uncomplicated; O48.0 Post-term pregnancy
CPT/HCPCS: 36415; 74018; 80053; 83033; 84443; 85025; 86850; 86900; 86901; 99406; A9270; J0131; J0330; J1170; J2210; J2274; J2795; J7120; 85027